=== PATIENT | male | born 1960 | race Asian ===

== ENCOUNTER 2021-08-12 22:14 | Emergency (ER) | payer OTHER ==
[2021-08-12 22:29] VITALS: BP 133/83; PULSE 69; TEMP 97.6; BMI 26.3
[2021-08-12] MEDS ORDERED: ACETAMINOPHEN 1000 MG/100 ML BAG IVPB ONE (23:13)
[2021-08-12] MEDS ORDERED: ACETAMINOPHEN INJECTION 100 ML IVPB ONE (23:30)
[2021-08-13 00:12] LABS: BASO % 0.5 % (0-2.0); HEMATOCRIT 33.8 % (35.4-49); HEMOGLOBIN 10.6 GM/dL (11.7-16.9); LYMPH % 13.3 % (8-40); MCH 21.7 pg (25.7-33.7); MCHC 31.5 g/dl (32.0-35.9); MEAN CELL VOLUME 68.8 fl (80-96); MEAN PLT VOLUME 9.1 fl (7.5-11.1); MONO % 8.8 % (3.8-10.2); NEUT % 76.4 % (42.8-82.8); PLATELET COUNT 195 10^3/uL (134-434); RBC 4.91 M/mm3 (4.00-5.60); RDW 18.4 % (11.9-15.9); WHITE BLOOD COUNT 10.4 K/mm3 (4.0-10.0)
[2021-08-13 00:20] LABS: INR 1.08 (0.83-1.09); PROTHROMBIN TIME (PATIENT) 12.4 SEC (9.7-13.0)
[2021-08-13 00:23] LABS: ACTIVATED PTT 27.4 SECONDS (25.2-36.5)
[2021-08-13 00:33] LABS: CALCIUM 9.3 mg/dL (8.5-10.1)
[2021-08-13 00:34] LABS: ALBUMIN 3.7 g/dl (3.4-5.0); BLOOD UREA NITROGEN 19.6 mg/dL (7-18)
[2021-08-13 00:37] LABS: CREATININE 1.3 mg/dL (0.55-1.3)
[2021-08-13 00:38] LABS: BILIRUBIN,TOTAL 0.2 mg/dL (0.2-1); TOT PROT 7.7 g/dl (6.4-8.2)
[2021-08-13] MEDS ORDERED: diazePAM 5 MG TABLET PO ONE (00:44)
[2021-08-13] MEDS ORDERED: diazePAM 5 MG TABLET ONE (00:51)
[2021-08-13 02:20] LABS: ANISOCYTOSIS 2+; MACROCYTOSIS 0; OVALOCYTE 1+
== END 2021-08-13 01:32 | disposition home or self-care (01) ==
LOC: JER 22:14
PROC: 3E0333Z Introduction of Anti-inflammatory into Peripheral Vein, Percutaneous Approach (ICD-10-PCS; principal; 2021-08-12)
DX: M62.838 Other muscle spasm (principal)
CPT/HCPCS: 36415; 80053; 84484; 85025; 85610; 85730; 93005; 93010; 93971-TC; 99285-25